=== PATIENT | male | born 1970 | race Caucasian/White ===

== ENCOUNTER 2016-04-21 14:17 | Inpatient (IN) | payer OTHER ==
[~2016-04-21] VITALS: Ht 176.5 cm; Wt 111.4 kg
[~2016-04-21 14:17] MED LIST: ADVAIR HFA120 INHALA IH; ALBUTEROL SULF8.5 GM IH; ATROPINE; AUGMENTIN875 MG PO; BACTRIM,SEPT1 TABLET PO; CLEOCIN150 MG PO; Cipro PO; DICYCLOMINE HCL20 MG PO; DILAUDID2 MG PO; DIPHENOXYLATE; ENTOCORT EC3 MG; ENTOCORT EC3 MG PO; FLAGYL500 MG PO; FOLIC ACID1 MG; FOLIC ACID1 MG PO; FOSAMAX10 MG PO; HYDROCODON-ACE1 EAC7 PO; HYDROMORPHONE HC4 MG PO; KEFLEX500 MG PO; LEVAQUIN500 MG PO; LEVOFLOXACIN750 MG PO; METHOTREXATE SODIUM IV; METRONIDAZOLE500 MG PO; MOTRIN800 MG PO; MYCOSTATIN5 ML PO; Motrin PO; NAPROSYN500 MG PO; NAPROXEN500 MG PO; NOHOMEMEDS; NORCO 5/3251 TABLET PO; PENTASA250 MG PO; PERCOCET 10/1 TABLET PO; PERCOCET 5/31 TABLET; PERCOCET 5/31 TABLET PO; PREDNISONE10 M1 PO; PREDNISONE20 MG PO; PRILOSEC40 MG PO; Proventil,Ventolin H IH; RAYOS5 MG PO; REMICADE10 MG/ML; REMICADE10 MG/ML IV; SPIRIVA RESPIMAT4 G1 IH; SPIRIVA RESPIMAT4 GM IH; TPN; VENTOLIN HFA18 GM IH; XARELTO15 MG PO; ZITHROMAX Z-PA250 MG PO; ZITHROMAX250 MG PO; ZOFRAN ODT4 MG PO; ZOFRAN ODT8 MG PO; [UNRECOGNIZED DRUG - OTHER] IV; cipro; flagyl; oxycodone; protonix
[2016-04-21 15:15] LABS: HEMATOCRIT 42.9 % (38.0-50.0); MCH 33.5 PG (29.0-34.0); MCHC 35.4 G/DL (30.0-36.0); MCV 94.5 FL (86-99); PLATELET COUNT 177 K/uL (156-360); RBC DIS.WIDTH-CV 14.1 % (11.8-14.6); RBC DIS.WIDTH-SD 46.4 % (39-53); RED BLOOD COUNT 4.54 M/uL (4.00-5.50); WHITE BLOOD COUNT 6.2 K/uL (4.1-10.2)
[2016-04-21 15:24] LABS: CHLORIDE 107 mEq/L (99-109); POTASSIUM 3.6 mEq/L (3.7-5.4); SODIUM 142 mEq/L (136-147)
[2016-04-21 15:27] LABS: GLUCOSE 97 mg/dL (70-99)
[2016-04-21 15:28] LABS: ANION GAP 11 MEQ/L (2-14)
[2016-04-21 15:29] LABS: TOTAL BILIRUBIN 0.5 mg/dL (0.0-1.0)
[2016-04-21 15:30] LABS: ALKALINE PHOSPHATASE 106 IU/L (3-129); GFR ESTIMATE (CALCULATED) > 59 mL/min/
[2016-04-21 15:31] LABS: UREA NITROGEN (BUN) 11 mg/dL (9-23)
[2016-04-21 15:35] LABS: ADD MIUA? YES; BILIRUBIN NEGATIVE; BLOOD NEGATIVE; COLOR YELLOW ((YELLOW)); GLUCOSE (STRIP) NEGATIVE; KETONES NEGATIVE; LEUKOCYTES NEGATIVE; NITRITE NEGATIVE; PROTEIN (STRIP) 30; SPECIFIC GRAVITY 1.025 (1.000-1.030); UROBILINOGEN 0.2 MG/DL (0.2-1.0)
[2016-04-21 16:01] LABS: RED BLOOD CELLS NONE SEEN /HPF (0-5); WHITE BLOOD CELLS NONE SEEN /HPF (0-5)
[2016-04-21 16:02] LABS: BACTERIA NONE SEEN; CASTS PRESENT /LPF; CRYSTALS NONE SEEN; EPITHELIAL CELLS NONE SEEN; MUCUS 2+; UCUL ADDED? NO
[2016-04-21 16:03] LABS: COARSE GRANULAR CASTS 0-5 /LPF
[2016-04-21 17:22] LABS: LIPASE 728 U/L (1.0-51.0)
[2016-04-21] MEDS ORDERED: MOTRIN800 MG PO (19:16)
[2016-04-21] MEDS ORDERED: PERCOCET 10/1 TABLET PO ×2 (19:16→19:17)
[2016-04-21 22:31] VITALS: BP 143/79
[2016-04-22] VITALS: BP 111/69
[2016-04-22 04:22] LABS: EOSINOPHIL (%) 0.4 % (0-5); HEMATOCRIT 42.2 % (38.0-50.0); IMMATURE GRANULOCYTE (%) 0.4 % (0.0-0.7); IMMATURE GRANULOCYTE COUNT 0.2 K/uL; LYMPHOCYTE COUNT 0.6 K/uL (1.0-2.8); MCH 33.2 PG (29.0-34.0); MCHC 34.8 G/DL (30.0-36.0); MCV 95.3 FL (86-99); MEAN PLAT.VOLUME 9.1 uM^3 (9.0-12.4); MONOCYTE COUNT 0.1 K/uL (0-0.8); NEUTROPHIL (%) 86.5 % (45-76); NEUTROPHIL COUNT 4.3 K/uL (1.8-6.4); PLATELET COUNT 178 K/uL (156-360); RBC DIS.WIDTH-CV 14.1 % (11.8-14.6); RBC DIS.WIDTH-SD 46.9 % (39-53); RED BLOOD COUNT 4.43 M/uL (4.00-5.50)
[2016-04-22 04:41] LABS: CHLORIDE 108 mEq/L (99-109); POTASSIUM 3.7 mEq/L (3.7-5.4); SODIUM 140 mEq/L (136-147)
[2016-04-22 04:44] LABS: GLUCOSE 159 mg/dL (70-99)
[2016-04-22 04:45] LABS: ANION GAP 11 MEQ/L (2-14)
[2016-04-22 04:47] LABS: ALKALINE PHOSPHATASE 105 IU/L (3-129); GFR ESTIMATE (CALCULATED) > 59 mL/min/; TOTAL BILIRUBIN 0.3 mg/dL (0.0-1.0)
[2016-04-22 05:08] LABS: UREA NITROGEN (BUN) 10 mg/dL (9-23)
[2016-04-22 07:00] VITALS: BP 139/76
[2016-04-22 10:17] LABS: AMYLASE 39 IU/L (1-118)
[2016-04-22 10:21] LABS: HDL CHOLESTEROL 44 MG/DL (Desirable>=40); LDL CHOLESTEROL 110 mg/dL (Desirable<100); LIPASE 30 U/L (1.0-51.0); NON-HDL CHOLESTEROL 118 mg/dL (Desirable<160); TOTAL CHOLESTEROL 162 mg/dL (Desirable<200); TRIGLYCERIDES 41 MG/DL (Normal: <150)
[2016-04-22 11:33] VITALS: BP 140/73
[2016-04-22 15:00] VITALS: BP 156/83
[2016-04-22 19:45] VITALS: BP 160/69
[2016-04-23 00:53] VITALS: BP 117/61
[2016-04-23 04:07] VITALS: BP 121/67
[2016-04-23 04:19] LABS: EOSINOPHIL (%) 0.1 % (0-5); HEMATOCRIT 41.5 % (38.0-50.0); IMMATURE GRANULOCYTE (%) 0.3 % (0.0-0.7); IMMATURE GRANULOCYTE COUNT 0.4 K/uL; LYMPHOCYTE COUNT 1.4 K/uL (1.0-2.8); MCH 33.3 PG (29.0-34.0); MCHC 34.9 G/DL (30.0-36.0); MCV 95.4 FL (86-99); MEAN PLAT.VOLUME 9.1 uM^3 (9.0-12.4); MONOCYTE (%) 5.7 % (3-12); MONOCYTE COUNT 0.8 K/uL (0-0.8); NEUTROPHIL (%) 84.5 % (45-76); NEUTROPHIL COUNT 12.2 K/uL (1.8-6.4); PLATELET COUNT 204 K/uL (156-360); RBC DIS.WIDTH-CV 14.2 % (11.8-14.6); RBC DIS.WIDTH-SD 47.5 % (39-53); RED BLOOD COUNT 4.35 M/uL (4.00-5.50)
[2016-04-23 04:20] LABS: WHITE BLOOD COUNT 14.5 K/uL (4.1-10.2)
[2016-04-23 04:36] LABS: CHLORIDE 108 mEq/L (99-109); POTASSIUM 3.5 mEq/L (3.7-5.4); SODIUM 141 mEq/L (136-147)
[2016-04-23 04:38] LABS: GLUCOSE 133 mg/dL (70-99)
[2016-04-23 04:40] LABS: ANION GAP 10 MEQ/L (2-14); TOTAL BILIRUBIN 0.3 mg/dL (0.0-1.0)
[2016-04-23 04:42] LABS: ALKALINE PHOSPHATASE 96 IU/L (3-129); GFR ESTIMATE (CALCULATED) > 59 mL/min/
[2016-04-23 04:43] LABS: UREA NITROGEN (BUN) 17 mg/dL (9-23)
[2016-04-23 08:00] VITALS: BP 146/84
[2016-04-23 12:00] VITALS: BP 131/87
[2016-04-23 12:38] LABS: HEMATOCRIT 42.3 % (38.0-50.0); MCV 98.1 FL (86-99)
[2016-04-23 16:00] VITALS: BP 139/66
[2016-04-23 23:25] VITALS: BP 138/83
[2016-04-24 06:34] LABS: EOSINOPHIL (%) 0 % (0-5); HEMATOCRIT 42.2 % (38.0-50.0); IMMATURE GRANULOCYTE (%) 0.6 % (0.0-0.7); IMMATURE GRANULOCYTE COUNT 0.1 K/uL; LYMPHOCYTE COUNT 0.9 K/uL (1.0-2.8); MCH 33.4 PG (29.0-34.0); MCHC 33.9 G/DL (30.0-36.0); MCV 98.6 FL (86-99); MEAN PLAT.VOLUME 9.7 uM^3 (9.0-12.4); MONOCYTE (%) 4.4 % (3-12); MONOCYTE COUNT 0.4 K/uL (0-0.8); NEUTROPHIL (%) 84.6 % (45-76); NEUTROPHIL COUNT 7.1 K/uL (1.8-6.4); PLATELET COUNT 194 K/uL (156-360); RBC DIS.WIDTH-CV 14.6 % (11.8-14.6); RBC DIS.WIDTH-SD 52.9 % (39-53); RED BLOOD COUNT 4.28 M/uL (4.00-5.50)
[2016-04-24 06:35] LABS: WHITE BLOOD COUNT 8.4 K/uL (4.1-10.2)
[2016-04-24 07:13] LABS: ALKALINE PHOSPHATASE 81 IU/L (3-129); ANION GAP 10 MEQ/L (2-14); CHLORIDE 105 MEQ/L (99-109); GFR ESTIMATE (CALCULATED) > 59 mL/min/; GLUCOSE 129 mg/dL (70-99); POTASSIUM 4.1 MEQ/L (3.7-5.4); SAMPLE HEMOLYSIS CHECK 0; SAMPLE ICTERIC CHECK 0; SAMPLE LIPEMIA CHECK 0; SODIUM 140 MEQ/L (136-147); TOTAL BILIRUBIN 0.4 MG/DL (0.0-1.0); UREA NITROGEN (BUN) 18 mg/dL (9-23)
[2016-04-24 07:55] VITALS: BP 133/81
[2016-04-24 15:56] VITALS: BP 171/81
[2016-04-24 23:35] VITALS: BP 145/79
[2016-04-25 07:54] VITALS: BP 174/84
[2016-04-25 09:45] LABS: MCH 33.2 PG (29.0-34.0); MCHC 33.6 G/DL (30.0-36.0); MCV 98.7 FL (86-99); MEAN PLAT.VOLUME 9.6 uM^3 (9.0-12.4); PLATELET COUNT 200 K/uL (156-360); RBC DIS.WIDTH-CV 14.6 % (11.8-14.6); RBC DIS.WIDTH-SD 52.6 % (39-53); RED BLOOD COUNT 4.46 M/uL (4.00-5.50)
[2016-04-25 09:47] LABS: WHITE BLOOD COUNT 12.7 K/uL (4.1-10.2)
[2016-04-25 10:04] LABS: ANION GAP 12 MEQ/L (2-14); CHLORIDE 102 MEQ/L (99-109); GFR ESTIMATE (CALCULATED) > 59 mL/min/; GLUCOSE 173 mg/dL (70-99); SAMPLE HEMOLYSIS CHECK 0; SAMPLE ICTERIC CHECK 0; SAMPLE LIPEMIA CHECK 0; SODIUM 138 MEQ/L (136-147); UREA NITROGEN (BUN) 21 mg/dL (9-23)
[2016-04-25 10:05] LABS: POTASSIUM 3.2 MEQ/L (3.7-5.4)
[2016-04-25 16:23] VITALS: BP 162/82
[2016-04-25 23:45] VITALS: BP 157/89
[2016-04-26 08:03] VITALS: BP 176/95
[2016-04-26 16:16] VITALS: BP 167/98
[2016-04-27] VITALS: BP 168/89
[2016-04-27 08:05] VITALS: BP 165/90
[2016-04-27 16:25] VITALS: BP 160/80
[2016-04-27 20:38] VITALS: BP 170/86
[2016-04-27 23:15] VITALS: BP 164/92
[2016-04-28 00:31] VITALS: BP 160/84
[2016-04-28 03:15] VITALS: BP 150/80
[2016-04-28 08:28] LABS: MCH 32.5 PG (29.0-34.0); MCV 98.3 FL (86-99); MEAN PLAT.VOLUME 10.6 uM^3 (9.0-12.4); PLATELET COUNT 166 K/uL (156-360); RBC DIS.WIDTH-CV 14.3 % (11.8-14.6); RBC DIS.WIDTH-SD 51.5 % (39-53); RED BLOOD COUNT 4.68 M/uL (4.00-5.50); WHITE BLOOD COUNT 12.9 K/uL (4.1-10.2)
[2016-04-28 08:50] LABS: ANION GAP 10 MEQ/L (2-14); CHLORIDE 101 MEQ/L (99-109); GFR ESTIMATE (CALCULATED) > 59 mL/min/; GLUCOSE 131 mg/dL (70-99); SAMPLE HEMOLYSIS CHECK 1; SAMPLE ICTERIC CHECK 0; SAMPLE LIPEMIA CHECK 0; SODIUM 135 MEQ/L (136-147); UREA NITROGEN (BUN) 29 mg/dL (9-23)
[2016-04-28 08:53] LABS: POTASSIUM 4.5 MEQ/L (3.7-5.4)
[2016-04-28 09:10] VITALS: BP 173/92
[2016-04-28 17:04] VITALS: BP 161/98
[2016-04-28 23:45] VITALS: BP 177/90
[2016-04-29 08:02] VITALS: BP 170/90
[2016-04-29 16:12] VITALS: BP 176/89
[2016-04-30] VITALS: BP 170/93
[2016-04-30 07:02] LABS: HEMATOCRIT 44.9 % (38.0-50.0); MCH 32.4 PG (29.0-34.0); MCV 98.2 FL (86-99); MEAN PLAT.VOLUME 9.1 uM^3 (9.0-12.4); PLATELET COUNT 213 K/uL (156-360); RBC DIS.WIDTH-CV 14.2 % (11.8-14.6); RBC DIS.WIDTH-SD 50.6 % (39-53); RED BLOOD COUNT 4.57 M/uL (4.00-5.50); WHITE BLOOD COUNT 15.8 K/uL (4.1-10.2)
[2016-04-30 07:16] LABS: EOSINOPHIL (%) 0 % (0-5); IMMATURE GRANULOCYTE (%) 3.2 % (0.0-0.7); IMMATURE GRANULOCYTE COUNT 0.5 K/uL; LYMPHOCYTE COUNT 0.9 K/uL (1.0-2.8); MONOCYTE (%) 10.2 % (3-12); MONOCYTE COUNT 1.6 K/uL (0-0.8); NEUTROPHIL (%) 80.5 % (45-76); NEUTROPHIL COUNT 12.7 K/uL (1.8-6.4)
[2016-04-30 07:26] LABS: ANION GAP 8 MEQ/L (2-14); CHLORIDE 100 MEQ/L (99-109); GFR ESTIMATE (CALCULATED) > 59 mL/min/; GLUCOSE 137 mg/dL (70-99); POTASSIUM 4.4 MEQ/L (3.7-5.4); SAMPLE HEMOLYSIS CHECK 0; SAMPLE ICTERIC CHECK 0; SAMPLE LIPEMIA CHECK 0; SODIUM 135 MEQ/L (136-147); UREA NITROGEN (BUN) 29 mg/dL (9-23)
[2016-04-30 07:41] VITALS: BP 156/90
[2016-04-30 07:46] LABS: HEMATOLOGY COMMENT 1 SMEAR COMPATIBLE; USER ID SDF
[2016-04-30 20:01] VITALS: BP 168/95
[2016-04-30 23:57] VITALS: BP 154/91
[2016-05-01 06:02] LABS: HEMATOCRIT 46.2 % (38.0-50.0); MCH 33.4 PG (29.0-34.0); MCV 98.3 FL (86-99); MEAN PLAT.VOLUME 9.5 uM^3 (9.0-12.4); PLATELET COUNT 217 K/uL (156-360); RBC DIS.WIDTH-CV 13.7 % (11.8-14.6); RBC DIS.WIDTH-SD 49.4 % (39-53); WHITE BLOOD COUNT 15.8 K/uL (4.1-10.2)
[2016-05-01 06:24] LABS: BASOPHIL COUNT 0.1 K/uL (0-0.1); EOSINOPHIL (%) 0.1 % (0-5); IMMATURE GRANULOCYTE (%) 3.5 % (0.0-0.7); IMMATURE GRANULOCYTE COUNT 0.6 K/uL; LYMPHOCYTE COUNT 0.9 K/uL (1.0-2.8); MONOCYTE (%) 8.5 % (3-12); MONOCYTE COUNT 1.3 K/uL (0-0.8); NEUTROPHIL (%) 81.7 % (45-76); NEUTROPHIL COUNT 12.9 K/uL (1.8-6.4)
[2016-05-01 06:28] LABS: ANION GAP 11 MEQ/L (2-14); CHLORIDE 99 MEQ/L (99-109); GFR ESTIMATE (CALCULATED) > 59 mL/min/; GLUCOSE 164 mg/dL (70-99); POTASSIUM 4.4 MEQ/L (3.7-5.4); SAMPLE HEMOLYSIS CHECK 0; SAMPLE ICTERIC CHECK 0; SAMPLE LIPEMIA CHECK 0; SODIUM 136 MEQ/L (136-147); UREA NITROGEN (BUN) 33 mg/dL (9-23)
[2016-05-01 06:45] LABS: HEMATOLOGY COMMENT 1 SMEAR COMPATIBLE; USER ID CL
[2016-05-01 07:37] VITALS: BP 133/91
[2016-05-01 15:50] VITALS: BP 165/79
[2016-05-01 20:14] LABS: HEMATOCRIT 43.8 % (38.0-50.0); MCH 33.2 PG (29.0-34.0); MCV 97.6 FL (86-99); MEAN PLAT.VOLUME 9.4 uM^3 (9.0-12.4); PLATELET COUNT 190 K/uL (156-360); RBC DIS.WIDTH-CV 13.6 % (11.8-14.6); RBC DIS.WIDTH-SD 48.7 % (39-53); RED BLOOD COUNT 4.49 M/uL (4.00-5.50); WHITE BLOOD COUNT 15.9 K/uL (4.1-10.2)
[2016-05-01 20:33] VITALS: BP 159/95
[2016-05-01 23:47] VITALS: BP 137/90
[2016-05-02 07:01] LABS: HEMATOCRIT 46.2 % (38.0-50.0); MCH 33.8 PG (29.0-34.0); MCV 99.4 FL (86-99); MEAN PLAT.VOLUME 9.2 uM^3 (9.0-12.4); PLATELET COUNT 181 K/uL (156-360); RBC DIS.WIDTH-CV 14.1 % (11.8-14.6); RED BLOOD COUNT 4.65 M/uL (4.00-5.50); WHITE BLOOD COUNT 16.7 K/uL (4.1-10.2)
[2016-05-02 07:10] LABS: BASOPHIL COUNT 0.1 K/uL (0-0.1); EOSINOPHIL (%) 0 % (0-5); IMMATURE GRANULOCYTE (%) 2.8 % (0.0-0.7); IMMATURE GRANULOCYTE COUNT 0.5 K/uL; LYMPHOCYTE COUNT 0.8 K/uL (1.0-2.8); MONOCYTE (%) 10.2 % (3-12); MONOCYTE COUNT 1.7 K/uL (0-0.8); NEUTROPHIL (%) 81.7 % (45-76); NEUTROPHIL COUNT 13.6 K/uL (1.8-6.4)
[2016-05-02 07:22] VITALS: BP 143/88
[2016-05-02 07:24] LABS: ANION GAP 7 MEQ/L (2-14); CHLORIDE 100 MEQ/L (99-109); GFR ESTIMATE (CALCULATED) > 59 mL/min/; GLUCOSE 136 mg/dL (70-99); MAGNESIUM 2.3 mg/dl (1.3-2.7); POTASSIUM 4.7 MEQ/L (3.7-5.4); SAMPLE HEMOLYSIS CHECK 0; SAMPLE ICTERIC CHECK 0; SAMPLE LIPEMIA CHECK 0; SODIUM 133 MEQ/L (136-147); UREA NITROGEN (BUN) 29 mg/dL (9-23)
[2016-05-02 07:27] LABS: HEMATOLOGY COMMENT 1 SMEAR COMPATIBLE; USER ID CL
[2016-05-02 15:51] VITALS: BP 160/80
[2016-05-03] VITALS: BP 140/76
[2016-05-03 06:39] LABS: HEMATOCRIT 43.4 % (38.0-50.0); MCH 33.3 PG (29.0-34.0); MCHC 33.6 G/DL (30.0-36.0); MCV 99.1 FL (86-99); MEAN PLAT.VOLUME 9.3 uM^3 (9.0-12.4); PLATELET COUNT 190 K/uL (156-360); RBC DIS.WIDTH-SD 50.1 % (39-53); RED BLOOD COUNT 4.38 M/uL (4.00-5.50); WHITE BLOOD COUNT 16.6 K/uL (4.1-10.2)
[2016-05-03 07:01] LABS: BASOPHIL COUNT 0.1 K/uL (0-0.1); EOSINOPHIL (%) 0.1 % (0-5); IMMATURE GRANULOCYTE (%) 2.5 % (0.0-0.7); IMMATURE GRANULOCYTE COUNT 0.4 K/uL; LYMPHOCYTE COUNT 1.6 K/uL (1.0-2.8); MONOCYTE (%) 8.4 % (3-12); MONOCYTE COUNT 1.4 K/uL (0-0.8); NEUTROPHIL COUNT 13.1 K/uL (1.8-6.4)
[2016-05-03 07:19] LABS: ANION GAP 11 MEQ/L (2-14); CHLORIDE 97 MEQ/L (99-109); GFR ESTIMATE (CALCULATED) > 59 mL/min/; GLUCOSE 178 mg/dL (70-99); HEMATOLOGY COMMENT 1 SMEAR COMPATIBLE; POTASSIUM 4.2 MEQ/L (3.7-5.4); SAMPLE HEMOLYSIS CHECK 0; SAMPLE ICTERIC CHECK 0; SAMPLE LIPEMIA CHECK 0; SODIUM 134 MEQ/L (136-147); UREA NITROGEN (BUN) 25 mg/dL (9-23); USER ID CL
[2016-05-03 07:25] LABS: MAGNESIUM 2.7 mg/dl (1.3-2.7)
[2016-05-03 08:00] VITALS: BP 160/88
[2016-05-03] MEDS ORDERED: PREDNISONE10 MG PO (13:17)
[2016-05-03] MEDS ORDERED: SENNA LAX8.6 MG PO (13:17)
[2016-05-03] MEDS ORDERED: DOCUSATE SODIU100 MG PO (13:17)
[2016-05-03] MEDS ORDERED: MORPHINE SULFAT15 MG PO (13:23)
[2016-05-03] MEDS ORDERED: PROCARDIA XL60 MG PO (14:17)
[2016-05-03] MEDS ORDERED: SPIRIVA RESPIMAT4 GM IH (14:17)
[2016-05-03] MEDS ORDERED: PROVENTIL,2.5 MG/0.5 AEROSOL (14:17)
== END 2016-05-03 14:10 | disposition home or self-care (01) | DRG 445 ==
LOC: EME 14:17 → EDOF 20:26 → 4SOUTH 20:26 → EDOF 22:07 → 4SOUTH 22:10
PROVIDERS: Hospitalist; Internal Medicine; Physician Assistant; Student in an Organized Health Care Education/Training Program; Surgery
DX: K80.20 Calculus of gallbladder without cholecystitis without obstruction (principal); J44.1 Chronic obstructive pulmonary disease with (acute) exacerbation; K62.5 Hemorrhage of anus and rectum; K56.60 Unspecified intestinal obstruction; K52.9 Noninfective gastroenteritis and colitis, unspecified; E87.6 Hypokalemia; J20.9 Acute bronchitis, unspecified; G89.29 Other chronic pain; F17.200 Nicotine dependence, unspecified, uncomplicated; R06.00 Dyspnea, unspecified; R74.8 Abnormal levels of other serum enzymes
CPT/HCPCS: 71010; 71020; 74000; 74177; 76705; 80048; 80053; 80061; 81003; 82150; 82272; 83605; 83690; 83735; 84100; 85014; 85018; 85025; 85027; 85651; 86140; 87493; 87506; 93005; 94010; 94640; 94640 76; 94667; 94668; 94760; 94799; 99202; 99281; 99285; J0696; J1170; J2060; J2270; J2405; J2930; J7030; J7050; J7512; S0028

== ENCOUNTER 2016-05-03 18:38 | Inpatient (IN) | payer OTHER ==
[~2016-05-03] VITALS: Ht 175.3 cm; Wt 117.3 kg
[~2016-05-03 18:38] MED LIST changes: +DOCUSATE SODIU100 MG PO; +MORPHINE SULFAT15 MG PO; +PREDNISONE10 MG PO; +PROCARDIA XL60 MG PO; +PROVENTIL,2.5 MG/0.5 AEROSOL; +SENNA LAX8.6 MG PO
[2016-05-03 19:46] LABS: HEMATOCRIT 45.7 % (38.0-50.0); MCH 32.8 PG (29.0-34.0); MCHC 33.9 G/DL (30.0-36.0); MCV 96.6 FL (86-99); MEAN PLAT.VOLUME 8.6 uM^3 (9.0-12.4); PLATELET COUNT 191 K/uL (156-360); RBC DIS.WIDTH-SD 47.4 % (39-53); RED BLOOD COUNT 4.73 M/uL (4.00-5.50); WHITE BLOOD COUNT 16.8 K/uL (4.1-10.2)
[2016-05-03 20:02] LABS: CHLORIDE 99 mEq/L (99-109); POTASSIUM 4.6 mEq/L (3.7-5.4); SODIUM 136 mEq/L (136-147)
[2016-05-03 20:03] LABS: GLUCOSE 168 mg/dL (70-99)
[2016-05-03 20:05] LABS: ANION GAP 12 MEQ/L (2-14)
[2016-05-03 20:07] LABS: GFR ESTIMATE (CALCULATED) > 59 mL/min/
[2016-05-03 20:08] LABS: UREA NITROGEN (BUN) 24 mg/dL (9-23)
[2016-05-03 20:09] LABS: TROP-I INTERPRETATION NEGATIVE; TROPONIN-I < 0.01 ng/mL (0.0-0.30)
[2016-05-03 21:07] LABS: CARBON DIOXIDE (BICARBONATE) 32.6 MEQ/L (20-31)
[2016-05-04 16:36] VITALS: BP 161/88
[2016-05-04 20:00] VITALS: BP 148/87
[2016-05-04 23:53] VITALS: BP 170/80
[2016-05-05 04:24] VITALS: BP 160/80
[2016-05-05 06:52] LABS: ANION GAP 6 MEQ/L (2-14); CHLORIDE 98 MEQ/L (99-109); GFR ESTIMATE (CALCULATED) > 59 mL/min/; POTASSIUM 4.4 MEQ/L (3.7-5.4); SAMPLE HEMOLYSIS CHECK 0; SAMPLE ICTERIC CHECK 0; SAMPLE LIPEMIA CHECK 0; SODIUM 138 MEQ/L (136-147); UREA NITROGEN (BUN) 20 mg/dL (9-23)
[2016-05-05 07:00] LABS: GLUCOSE 89 mg/dL (70-99)
[2016-05-05 12:11] VITALS: BP 143/85
[2016-05-05 16:26] VITALS: BP 140/82
[2016-05-05 20:19] VITALS: BP 160/92
[2016-05-06] VITALS (7 sets, daily range): BP systolic 118–150; BP diastolic 70–90
[2016-05-06 02:21] LABS: AMYLASE 54 IU/L (1-118)
[2016-05-06 02:30] LABS: LIPASE 32 U/L (1.0-51.0)
[2016-05-06 06:46] LABS: ANION GAP 7 MEQ/L (2-14); CHLORIDE 93 MEQ/L (99-109); GFR ESTIMATE (CALCULATED) > 59 mL/min/; GLUCOSE 76 mg/dL (70-99); POTASSIUM 4.1 MEQ/L (3.7-5.4); SAMPLE HEMOLYSIS CHECK 0; SAMPLE ICTERIC CHECK 0; SAMPLE LIPEMIA CHECK 0; SODIUM 139 MEQ/L (136-147); UREA NITROGEN (BUN) 17 mg/dL (9-23)
[2016-05-06 07:12] LABS: MCH 33.2 PG (29.0-34.0); MCHC 33.7 G/DL (30.0-36.0); MCV 98.4 FL (86-99); MEAN PLAT.VOLUME 8.9 uM^3 (9.0-12.4); PLATELET COUNT 139 K/uL (156-360); RBC DIS.WIDTH-CV 13.8 % (11.8-14.6); RBC DIS.WIDTH-SD 49.9 % (39-53); RED BLOOD COUNT 4.37 M/uL (4.00-5.50)
[2016-05-06 07:19] LABS: WHITE BLOOD COUNT 10.3 K/uL (4.1-10.2)
[2016-05-07 04:00] VITALS: BP 123/74
[2016-05-07 06:41] LABS: HEMATOCRIT 44.2 % (38.0-50.0); MCH 34.1 PG (29.0-34.0); MCHC 34.6 G/DL (30.0-36.0); MCV 98.4 FL (86-99); MEAN PLAT.VOLUME 9.3 uM^3 (9.0-12.4); PLATELET COUNT 145 K/uL (156-360); RBC DIS.WIDTH-CV 13.9 % (11.8-14.6); RBC DIS.WIDTH-SD 49.8 % (39-53); RED BLOOD COUNT 4.49 M/uL (4.00-5.50); WHITE BLOOD COUNT 11.6 K/uL (4.1-10.2)
[2016-05-07 07:10] LABS: ANION GAP ND MEQ/L (2-14); CHLORIDE 90 MEQ/L (99-109); GFR ESTIMATE (CALCULATED) > 59 mL/min/; POTASSIUM 3.3 MEQ/L (3.7-5.4); SAMPLE HEMOLYSIS CHECK 0; SAMPLE ICTERIC CHECK 0; SAMPLE LIPEMIA CHECK 0; SODIUM 141 MEQ/L (136-147); UREA NITROGEN (BUN) 17 mg/dL (9-23)
[2016-05-07 07:14] LABS: CARBON DIOXIDE (BICARBONATE) > 40.0 MEQ/L (20-31); GLUCOSE 96 mg/dL (70-99)
[2016-05-07 08:02] VITALS: BP 120/76
[2016-05-07 11:36] VITALS: BP 111/69
[2016-05-07 15:48] VITALS: BP 125/71
[2016-05-07 19:37] VITALS: BP 108/72
[2016-05-07 23:34] VITALS: BP 132/83
[2016-05-08 03:40] VITALS: BP 126/85
[2016-05-08 07:56] VITALS: BP 139/76
[2016-05-08 12:20] VITALS: BP 142/73
[2016-05-08 16:27] LABS: ANION GAP 8 MEQ/L (2-14); CHLORIDE 93 MEQ/L (99-109); GFR ESTIMATE (CALCULATED) > 59 mL/min/; GLUCOSE 107 mg/dL (70-99); POTASSIUM 3.5 MEQ/L (3.7-5.4); SAMPLE HEMOLYSIS CHECK 0; SAMPLE ICTERIC CHECK 0; SAMPLE LIPEMIA CHECK 0; SODIUM 140 MEQ/L (136-147); UREA NITROGEN (BUN) 17 mg/dL (9-23)
[2016-05-08 16:28] LABS: MAGNESIUM 2.1 mg/dl (1.3-2.7)
[2016-05-08 19:37] VITALS: BP 136/92
[2016-05-09 00:09] VITALS: BP 133/82
[2016-05-09 03:52] VITALS: BP 139/78
[2016-05-09 07:40] VITALS: BP 133/74
[2016-05-09 10:57] VITALS: BP 124/69
[2016-05-09 15:08] VITALS: BP 162/82
[2016-05-09 19:54] VITALS: BP 140/81
[2016-05-10] VITALS: BP 136/89
[2016-05-10 07:29] VITALS: BP 124/72
[2016-05-10] MEDS ORDERED: SENNA LAX8.6 MG PO (12:01)
[2016-05-10] MEDS ORDERED: POLYETHYLENE GL17 GM PO (12:01)
[2016-05-10] MEDS ORDERED: METOCLOPRAMIDE H5 MG PO (12:01)
[2016-05-10] MEDS ORDERED: MYLICON,MYLANTA80 MG PO (12:02)
== END 2016-05-10 13:21 | disposition home or self-care (01) | DRG 190 ==
LOC: EME 18:38 → EDOF 23:02 → 5SOUTH 23:02
PROVIDERS: Emergency Medicine; Family Medicine; Hospitalist; Internal Medicine; Internal Medicine Gastroenterology; Physician Assistant
DX: J44.0 Chronic obstructive pulmonary disease with (acute) lower respiratory infection (principal); J44.1 Chronic obstructive pulmonary disease with (acute) exacerbation; J18.9 Pneumonia, unspecified organism; K50.90 Crohn's disease, unspecified, without complications; K56.7 Ileus, unspecified; K59.00 Constipation, unspecified; N20.0 Calculus of kidney; K46.9 Unspecified abdominal hernia without obstruction or gangrene; K80.20 Calculus of gallbladder without cholecystitis without obstruction; Z87.19 Personal history of other diseases of the digestive system; R14.0 Abdominal distension (gaseous); F41.9 Anxiety disorder, unspecified; R50.9 Fever, unspecified; G89.29 Other chronic pain; F17.200 Nicotine dependence, unspecified, uncomplicated; Z98.890 Other specified postprocedural states; I10 Essential (primary) hypertension
CPT/HCPCS: 71010; 71020; 74000; 74020; 74176; 74177; 80048; 80048 91; 80069; 82150; 82803; 82948; 83605; 83690; 83735; 84484; 85027; 87040; 93005; 94640; 94640 76; 94799; 99202; 99281; 99285; J0456; J0692; J1170; J1650; J1885; J2270; J2405; J2920; J2930; J3010; J7050; J7512

== ENCOUNTER 2017-06-06 18:56 | Emergency (ER) | payer OTHER ==
[~2017-06-06] VITALS: Ht 175.3 cm; Wt 112.3 kg
[~2017-06-06 18:56] MED LIST changes: +METOCLOPRAMIDE H5 MG PO; +MYLICON,MYLANTA80 MG PO; +POLYETHYLENE GL17 GM PO
[2017-06-06 19:47] LABS: HEMATOCRIT 46.3 % (38.0-50.0); HEMOGLOBIN 16.4 G/DL (12.5-16.6); MCHC 35.4 G/DL (30.0-36.0); MCV 96.1 FL (86-99); PLATELET COUNT 164 K/uL (156-360); RBC DIS.WIDTH-CV 13.7 % (11.8-14.6); RBC DIS.WIDTH-SD 48.9 % (39-53); RED BLOOD COUNT 4.82 M/uL (4.00-5.50); WHITE BLOOD COUNT 8.1 K/uL (4.1-10.2)
[2017-06-06 19:55] LABS: ALBUMIN 3.9 g/dL (3.2-4.8)
[2017-06-06 19:56] LABS: CHLORIDE 106 mEq/L (99-109); POTASSIUM 3.9 mEq/L (3.7-5.4); SODIUM 139 mEq/L (136-147)
[2017-06-06 19:58] LABS: GLUCOSE 145 mg/dL (70-99); TOTAL PROTEIN 6.9 g/dL (6.4-8.3)
[2017-06-06 20:00] LABS: TOTAL BILIRUBIN 0.6 mg/dL (0.0-1.0)
[2017-06-06 20:01] LABS: ALKALINE PHOSPHATASE 118 IU/L (3-129)
[2017-06-06 20:02] LABS: GFR ESTIMATE (CALCULATED) > 59 mL/min/ (58.99-99999)
[2017-06-06 20:03] LABS: AST (GOT) 24 IU/L (2-34); UREA NITROGEN (BUN) 18 mg/dL (9-23)
[2017-06-06 20:05] LABS: ALT (GPT) 37 IU/L (3-49); LIPASE 53 U/L (1.0-51.0)
[2017-06-07] MEDS ORDERED: PERCOCET 5/31 TABLET PO (00:28)
[2017-06-07 00:36] VITALS: BP 126/87
== END 2017-06-07 00:43 | disposition home or self-care (01) ==
LOC: EME 18:56
DX: K50.10 Crohn's disease of large intestine without complications (principal); J44.9 Chronic obstructive pulmonary disease, unspecified; F17.200 Nicotine dependence, unspecified, uncomplicated; M81.0 Age-related osteoporosis without current pathological fracture; Z86.718 Personal history of other venous thrombosis and embolism; Z87.442 Personal history of urinary calculi
CPT/HCPCS: 74177; 80053; 83690; 85027; 99281; 99284; J2270; J7040

== ENCOUNTER 2017-07-16 11:34 | Emergency (ER) | payer OTHER ==
[~2017-07-16] VITALS: Ht 175.3 cm; Wt 113.9 kg
[2017-07-16] MEDS ORDERED: KEFLEX500 MG PO (15:42)
[2017-07-16] MEDS ORDERED: REGLAN10 MG PO (15:42)
[2017-07-16] MEDS ORDERED: TORADOL10 MG PO (15:42)
[2017-07-16 16:05] VITALS: BP 134/87
== END 2017-07-16 16:05 | disposition home or self-care (01) ==
LOC: EME 11:34
DX: F07.81 Postconcussional syndrome (principal); S10.96XA Insect bite of unspecified part of neck, initial encounter; W57.XXXA Bitten or stung by nonvenomous insect and other nonvenomous arthropods, initial encounter; J44.9 Chronic obstructive pulmonary disease, unspecified; K50.90 Crohn's disease, unspecified, without complications; Z86.718 Personal history of other venous thrombosis and embolism; G89.29 Other chronic pain; F17.200 Nicotine dependence, unspecified, uncomplicated
CPT/HCPCS: 70450; 99281; 99283

== ENCOUNTER 2017-07-31 18:10 | Emergency (ER) | payer OTHER ==
[~2017-07-31] VITALS: Ht 179.1 cm; Wt 109.0 kg
[~2017-07-31 18:10] MED LIST changes: +REGLAN10 MG PO; +TORADOL10 MG PO
[2017-07-31 20:22] LABS: BASOPHIL (%) 0.4 % (0-1); EOSINOPHIL (%) 0.2 % (0-5); HEMATOCRIT 43.5 % (38.0-50.0); HEMOGLOBIN 15.7 G/DL (12.5-16.6); IMMATURE GRANULOCYTE (%) 0.5 % (0.0-0.7); LYMPHOCYTE (%) 5.5 % (15-42); LYMPHOCYTE COUNT 0.6 K/uL (1.0-2.8); MCH 33.5 PG (29.0-34.0); MCHC 36.1 G/DL (30.0-36.0); MCV 92.9 FL (86-99); MONOCYTE (%) 4.4 % (3-12); MONOCYTE COUNT 0.5 K/uL (0-0.8); NEUTROPHIL COUNT 9.4 K/uL (1.8-6.4); PLATELET COUNT 150 K/uL (156-360); RBC DIS.WIDTH-CV 13.7 % (11.8-14.6); RBC DIS.WIDTH-SD 46.4 % (39-53); RED BLOOD COUNT 4.68 M/uL (4.00-5.50); WHITE BLOOD COUNT 10.5 K/uL (4.1-10.2)
[2017-07-31 20:39] LABS: CHLORIDE 102 mEq/L (99-109); POTASSIUM 3.2 mEq/L (3.7-5.4); SODIUM 136 mEq/L (136-147)
[2017-07-31 20:40] LABS: ALBUMIN 3.8 g/dL (3.2-4.8); MAGNESIUM 1.5 mg/dL (1.3-2.7)
[2017-07-31 20:42] LABS: GLUCOSE 121 mg/dL (70-99); TOTAL PROTEIN 7.2 g/dL (6.4-8.3); TROP-I INTERPRETATION NEGATIVE; TROPONIN-I < 0.01 ng/mL (0.0-0.30)
[2017-07-31 20:44] LABS: TOTAL BILIRUBIN 1.1 mg/dL (0.0-1.0)
[2017-07-31 20:46] LABS: ALKALINE PHOSPHATASE 114 IU/L (3-129); CREATININE 0.9 mg/dL (0.6-1.3); GFR ESTIMATE (CALCULATED) > 59 mL/min/ (58.99-99999)
[2017-07-31 20:47] LABS: UREA NITROGEN (BUN) 11 mg/dL (9-23)
[2017-07-31 20:48] LABS: AST (GOT) 23 IU/L (2-34)
[2017-07-31 20:49] LABS: ALT (GPT) 33 IU/L (3-49); LIPASE 31 U/L (1.0-51.0)
[2017-08-01 00:03] LABS: APPEARANCE CLEAR ((CLEAR)); BILIRUBIN NEGATIVE; BLOOD NEGATIVE; COLOR YELLOW ((YELLOW)); GLUCOSE (STRIP) NEGATIVE; KETONES NEGATIVE; LEUKOCYTES NEGATIVE; NITRITE NEGATIVE; PROTEIN (STRIP) NEGATIVE; SPECIFIC GRAVITY 1.051 (1.000-1.030); UCUL ADDED? NO; UROBILINOGEN 0.2 MG/DL (0.2-1.0)
[2017-08-01] MEDS ORDERED: ZOFRAN ODT4 MG PO (00:51)
[2017-08-01 01:20] VITALS: BP 109/49
== END 2017-08-01 01:21 | disposition home or self-care (01) ==
LOC: EME 18:10
PROVIDERS: Emergency Medicine
DX: A08.4 Viral intestinal infection, unspecified (principal); E87.6 Hypokalemia; K50.90 Crohn's disease, unspecified, without complications; G89.29 Other chronic pain; J44.9 Chronic obstructive pulmonary disease, unspecified; M81.0 Age-related osteoporosis without current pathological fracture; G43.909 Migraine, unspecified, not intractable, without status migrainosus; F31.9 Bipolar disorder, unspecified; F17.200 Nicotine dependence, unspecified, uncomplicated; Z86.718 Personal history of other venous thrombosis and embolism; Z87.442 Personal history of urinary calculi; Z87.19 Personal history of other diseases of the digestive system
CPT/HCPCS: 74177; 80053; 81003; 83690; 83735; 84484; 85025; 93005; 99281; 99285; J2405; J3010; J7040; J7120

== ENCOUNTER 2017-08-20 18:50 | Inpatient (IN) | payer OTHER ==
[~2017-08-20] VITALS: Ht 175.3 cm; Wt 111.4 kg
[2017-08-20 19:37] LABS: HEMATOCRIT 40.9 % (38.0-50.0); HEMOGLOBIN 14.5 G/DL (12.5-16.6); MCH 33.5 PG (29.0-34.0); MCHC 35.5 G/DL (30.0-36.0); MCV 94.5 FL (86-99); PLATELET COUNT 163 K/uL (156-360); RBC DIS.WIDTH-CV 13.9 % (11.8-14.6); RBC DIS.WIDTH-SD 48.2 % (39-53); RED BLOOD COUNT 4.33 M/uL (4.00-5.50); WHITE BLOOD COUNT 5.3 K/uL (4.1-10.2)
[2017-08-20 19:45] LABS: ALBUMIN 3.6 g/dL (3.2-4.8)
[2017-08-20 19:46] LABS: CHLORIDE 105 mEq/L (99-109); POTASSIUM 3.5 mEq/L (3.7-5.4); SODIUM 141 mEq/L (136-147)
[2017-08-20 19:48] LABS: GLUCOSE 104 mg/dL (70-99); TOTAL PROTEIN 7.1 g/dL (6.4-8.3)
[2017-08-20 19:50] LABS: TOTAL BILIRUBIN 0.7 mg/dL (0.0-1.0)
[2017-08-20 19:51] LABS: ALKALINE PHOSPHATASE 111 IU/L (3-129)
[2017-08-20 19:52] LABS: GFR ESTIMATE (CALCULATED) > 59 mL/min/ (58.99-99999)
[2017-08-20 19:53] LABS: AST (GOT) 23 IU/L (2-34); UREA NITROGEN (BUN) 11 mg/dL (9-23)
[2017-08-20 19:54] LABS: ALT (GPT) 32 IU/L (3-49)
[2017-08-20 19:55] LABS: LIPASE 49 U/L (1.0-51.0)
[2017-08-20 21:53] LABS: MAGNESIUM 1.8 mg/dL (1.3-2.7)
[2017-08-20 23:05] LABS: APPEARANCE CLEAR ((CLEAR)); BILIRUBIN NEGATIVE; BLOOD NEGATIVE; COLOR YELLOW ((YELLOW)); GLUCOSE (STRIP) 50; KETONES NEGATIVE; LEUKOCYTES NEGATIVE; NITRITE NEGATIVE; PROTEIN (STRIP) 30; SPECIFIC GRAVITY 1.015 (1.000-1.030); UCUL ADDED? NO; UROBILINOGEN 0.2 MG/DL (0.2-1.0)
[2017-08-20 23:09] LABS: TROP-I INTERPRETATION NEGATIVE; TROPONIN-I < 0.01 ng/mL (0.0-0.30)
[2017-08-21] MEDS ORDERED: ADDERALL30 MG PO (01:17)
[2017-08-21] MEDS ORDERED: POTASSIUM-9999 MG PO (01:18)
[2017-08-21] MEDS ORDERED: ASPIRIN325 MG PO (01:24)
[2017-08-21 03:08] VITALS: BP 170/84
[2017-08-21 08:02] VITALS: BP 136/73
[2017-08-21 11:28] VITALS: BP 145/81
[2017-08-21 15:41] VITALS: BP 129/99
[2017-08-21 19:22] VITALS: BP 155/77
[2017-08-22] VITALS (7 sets, daily range): BP systolic 123–163; BP diastolic 64–87
[2017-08-22 10:02] LABS: BASOPHIL (%) 0.1 % (0-1); EOSINOPHIL (%) 0 % (0-5); HEMATOCRIT 41.5 % (38.0-50.0); HEMOGLOBIN 14.2 G/DL (12.5-16.6); IMMATURE GRANULOCYTE (%) 0.5 % (0.0-0.7); MCH 33.6 PG (29.0-34.0); MCHC 34.2 G/DL (30.0-36.0); MCV 98.1 FL (86-99); MONOCYTE (%) 1.8 % (3-12); MONOCYTE COUNT 0.2 K/uL (0-0.8); NEUTROPHIL (%) 87.6 % (45-76); NEUTROPHIL COUNT 8.6 K/uL (1.8-6.4); PLATELET COUNT 155 K/uL (156-360); RBC DIS.WIDTH-CV 14.6 % (11.8-14.6); RBC DIS.WIDTH-SD 52.4 % (39-53); RED BLOOD COUNT 4.23 M/uL (4.00-5.50); WHITE BLOOD COUNT 9.8 K/uL (4.1-10.2)
[2017-08-22 10:39] LABS: CHLORIDE 104 MEQ/L (99-109); CREATININE 0.8 MG/DL (0.6-1.3); GFR ESTIMATE (CALCULATED) > 59 mL/min/ (58.99-99999); POTASSIUM 4.2 MEQ/L (3.7-5.4); SODIUM 137 MEQ/L (136-147); UREA NITROGEN (BUN) 17 mg/dL (9-23)
[2017-08-22 10:43] LABS: GLUCOSE 163 mg/dL (70-99)
[2017-08-22 13:07] LABS: STOOL OCCULT BLD 1ST SPECIMEN NEGATIVE
[2017-08-22 13:42] LABS: C DIFF TOXIN NEGATIVE (NEGATIVE)
[2017-08-23 03:41] VITALS: BP 129/88
[2017-08-23 05:18] LABS: HEMATOCRIT 41.9 % (38.0-50.0); HEMOGLOBIN 14.1 G/DL (12.5-16.6); MCHC 33.7 G/DL (30.0-36.0); MCV 98.1 FL (86-99); PLATELET COUNT 177 K/uL (156-360); RBC DIS.WIDTH-CV 14.6 % (11.8-14.6); RBC DIS.WIDTH-SD 52.1 % (39-53); RED BLOOD COUNT 4.27 M/uL (4.00-5.50)
[2017-08-23 05:43] LABS: CHLORIDE 104 MEQ/L (99-109); CREATININE 0.9 MG/DL (0.6-1.3); GFR ESTIMATE (CALCULATED) > 59 mL/min/ (58.99-99999); GLUCOSE 151 mg/dL (70-99); POTASSIUM 3.8 MEQ/L (3.7-5.4); SODIUM 137 MEQ/L (136-147); UREA NITROGEN (BUN) 20 mg/dL (9-23)
[2017-08-23 07:45] VITALS: BP 154/91
[2017-08-23 11:53] VITALS: BP 114/71
[2017-08-23 15:39] VITALS: BP 137/77
[2017-08-23 19:51] VITALS: BP 163/89
[2017-08-24 00:08] VITALS: BP 165/80
[2017-08-24 08:00] VITALS: BP 141/98
[2017-08-24] MEDS ORDERED: MUCINEX600 MG PO (10:34)
[2017-08-24] MEDS ORDERED: DULERA 100 MCG/13 GM IH (10:34)
[2017-08-24] MEDS ORDERED: PREDNISONE5 M1 PO (10:35)
[2017-08-24] MEDS ORDERED: PERCOCET 10/1 TABLET PO (10:39)
[2017-08-24] MEDS ORDERED: CEFTIN250 MG PO (10:54)
[2017-08-24 12:12] VITALS: BP 145/79
== END 2017-08-24 13:26 | disposition home or self-care (01) | DRG 191 ==
LOC: EME 18:50 → 4SOUTH 08-21 02:07 → EDOF 08-21 02:07 → ENRESERV 08-21 02:08 → 4SOUTH 08-21 02:41 → ENPENDDIS 08-24 11:01 → 4SOUTH 08-24 13:26
PROVIDERS: Hospitalist; Physician Assistant
DX: J44.1 Chronic obstructive pulmonary disease with (acute) exacerbation (principal); J20.9 Acute bronchitis, unspecified; J44.0 Chronic obstructive pulmonary disease with (acute) lower respiratory infection; K50.111 Crohn's disease of large intestine with rectal bleeding; K80.20 Calculus of gallbladder without cholecystitis without obstruction; E87.6 Hypokalemia; E66.9 Obesity, unspecified; Z68.36 Body mass index [BMI] 36.0-36.9, adult; G89.29 Other chronic pain; M54.9 Dorsalgia, unspecified; M81.0 Age-related osteoporosis without current pathological fracture; F12.90 Cannabis use, unspecified, uncomplicated; F17.210 Nicotine dependence, cigarettes, uncomplicated; Z79.891 Long term (current) use of opiate analgesic; Z91.19 Patient's noncompliance with other medical treatment and regimen; Z56.0 Unemployment, unspecified; Z87.442 Personal history of urinary calculi
CPT/HCPCS: 71046; 74176; 80048; 80053; 81003; 82272; 83690; 83735; 84484; 85025; 85027; 87493; 93005; 94640; 94640 76; 94644; 94667; 94668; 94799; 99202; 99281; 99285; J0696; J1650; J2405; J2765; J2920; J2930; J3010; J3480; J7030; J7512

== ENCOUNTER 2017-11-24 11:29 | Emergency (ER) | payer OTHER ==
[~2017-11-24] VITALS: Ht 172.7 cm; Wt 110.1 kg
[~2017-11-24 11:29] MED LIST changes: +ADDERALL30 MG PO; +ASPIRIN325 MG PO; +CEFTIN250 MG PO; +DULERA 100 MCG/13 GM IH; +MUCINEX600 MG PO; +POTASSIUM-9999 MG PO; +PREDNISONE5 M1 PO
[2017-11-24 12:46] LABS: BASOPHIL (%) 0.3 % (0-1); EOSINOPHIL (%) 1.5 % (0-5); EOSINOPHIL COUNT 0.2 K/uL (0-0.3); HEMATOCRIT 42.3 % (38.0-50.0); IMMATURE GRANULOCYTE (%) 0.3 % (0.0-0.7); LYMPHOCYTE (%) 9.3 % (15-42); LYMPHOCYTE COUNT 0.9 K/uL (1.0-2.8); MCH 34.6 PG (29.0-34.0); MCHC 35.5 G/DL (30.0-36.0); MCV 97.5 FL (86-99); MONOCYTE (%) 3.9 % (3-12); MONOCYTE COUNT 0.4 K/uL (0-0.8); NEUTROPHIL (%) 84.7 % (45-76); NEUTROPHIL COUNT 8.6 K/uL (1.8-6.4); PLATELET COUNT 108 K/uL (156-360); RBC DIS.WIDTH-SD 50.3 % (39-53); RED BLOOD COUNT 4.34 M/uL (4.00-5.50); WHITE BLOOD COUNT 10.2 K/uL (4.1-10.2)
[2017-11-24 13:04] LABS: ALBUMIN 3.6 g/dL (3.2-4.8); CHLORIDE 102 mEq/L (99-109); POTASSIUM 3.4 mEq/L (3.7-5.4); SODIUM 135 mEq/L (136-147)
[2017-11-24 13:06] LABS: GLUCOSE 107 mg/dL (70-99); TOTAL PROTEIN 6.8 g/dL (6.4-8.3)
[2017-11-24 13:08] LABS: TOTAL BILIRUBIN 1.4 mg/dL (0.0-1.0)
[2017-11-24 13:10] LABS: ALKALINE PHOSPHATASE 97 IU/L (3-129); CREATININE 0.8 mg/dL (0.6-1.3); GFR ESTIMATE (CALCULATED) > 59 mL/min/ (58.99-99999)
[2017-11-24 13:11] LABS: UREA NITROGEN (BUN) 9 mg/dL (9-23)
[2017-11-24 13:12] LABS: AST (GOT) 16 IU/L (2-34); DIRECT BILIRUBIN 0.5 mg/dL (0.0-0.3)
[2017-11-24 13:13] LABS: ALT (GPT) 22 IU/L (3-49); LIPASE 42 U/L (1.0-51.0)
[2017-11-24 14:01] LABS: APPEARANCE CLEAR ((CLEAR)); BILIRUBIN NEGATIVE; BLOOD NEGATIVE; COLOR YELLOW ((YELLOW)); GLUCOSE (STRIP) 50; KETONES NEGATIVE; LEUKOCYTES NEGATIVE; NITRITE NEGATIVE; PROTEIN (STRIP) 30; SPECIFIC GRAVITY 1.015 (1.000-1.030); UCUL ADDED? NO; UROBILINOGEN 0.2 MG/DL (0.2-1.0)
[2017-11-24 15:16] VITALS: BP 158/97
== END 2017-11-24 16:35 | disposition home or self-care (01) ==
LOC: EME 11:29
PROVIDERS: Emergency Medicine
DX: R10.84 Generalized abdominal pain (principal); K50.911 Crohn's disease, unspecified, with rectal bleeding; Z87.442 Personal history of urinary calculi; J43.9 Emphysema, unspecified; M81.0 Age-related osteoporosis without current pathological fracture; G89.29 Other chronic pain; Z86.718 Personal history of other venous thrombosis and embolism; F17.200 Nicotine dependence, unspecified, uncomplicated
CPT/HCPCS: 74177; 80048; 80076; 81003; 83690; 85025; 99281; 99285; J2270; J7040

== ENCOUNTER → 2017-12-14 | Outpatient (CLI) | payer OTHER ==
[~2017-12-14] VITALS: Ht 175.3 cm; Wt 109.5 kg
== END | disposition home or self-care (01) ==
LOC: AMB 13:21
DX: K29.80 Duodenitis without bleeding (principal); K29.70 Gastritis, unspecified, without bleeding; K50.00 Crohn's disease of small intestine without complications; K52.9 Noninfective gastroenteritis and colitis, unspecified; I10 Essential (primary) hypertension; J44.9 Chronic obstructive pulmonary disease, unspecified; G47.30 Sleep apnea, unspecified; F41.9 Anxiety disorder, unspecified; Z79.891 Long term (current) use of opiate analgesic; Z87.891 Personal history of nicotine dependence; E66.9 Obesity, unspecified; Z68.35 Body mass index [BMI] 35.0-35.9, adult
CPT/HCPCS: 88305; 88342 TC; J2250; J3010